=== PATIENT | female | born 1960 | race Caucasian/White ===

== ENCOUNTER 2016-07-13 01:05 | Emergency (ER) | payer MEDICAID ==
[~2016-07-13] VITALS: Ht 144.8 cm; Wt 68.0 kg
[~2016-07-13 01:05] MED LIST: DIPH1POW6 PO; MENT1LOZ4 MM
[2016-07-13 01:33] VITALS: BP 157/93
[2016-07-13] MEDS ORDERED: predniSONE 20 MG TABLET ONE (02:36)
[2016-07-13] MEDS ORDERED: ALBUTEROL FS 2.5 MG/3 ML VIAL.NEB ONE (02:39)
[2016-07-13] MEDS ORDERED: ALBUTEROL FS 2.5 MG/0.5 ML VIAL.NEB ONE (02:49)
[2016-07-13] MEDS ORDERED: ALBUTEROL FS 2.5 MG/3 ML VIAL.NEB NEB ONE (03:00)
[2016-07-13] MEDS ORDERED: ALBUTEROL FS 2.5 MG/0.5 ML VIAL.NEB NEB ONE (03:00)
[2016-07-13] MEDS ORDERED: predniSONE 20 MG TABLET PO ONE (03:00)
== END 2016-07-13 03:50 | disposition home or self-care (01) ==
LOC: ER 01:06
DX: J20.9 Acute bronchitis, unspecified (principal)
CPT/HCPCS: 71010-TC; A4606; Z7610

== ENCOUNTER 2023-07-19 18:06 | Emergency (ER) | payer MEDICAID, OTHER ==
[~2023-07-19] VITALS: Ht 154.9 cm; Wt 68.0 kg
[2023-07-19] MEDS ORDERED: AZIT250T PO (20:46)
[2023-07-19] MEDS ORDERED: ALBU6.7H9 INH (20:46)
[2023-07-19] MEDS ORDERED: BENZ-13 PO (20:46)
[2023-07-19 20:53] LABS: BASOPHILS % (AUTO) 0.4 % (0.0-2.0); EOSINOPHILS # (AUTO) 0.3 K/uL (0.0-0.7); EOSINOPHILS % (AUTO) 3.8 % (0.0-6.0); HEMATOCRIT 39 % (33-45); LYMPHOCYTES % (AUTO) 48.3 % (20.0-44.0); MEAN CORPUSCULAR HEMOGLOBIN 30 PG (26.0-33.0); MEAN CORPUSCULAR HGB CONC 33 g/dl (31.0-36.0); MEAN CORPUSCULAR VOLUME 90 fL (82-100); MONOCYTES # (AUTO) 0.6 K/uL (0.1-1.30); MONOCYTES % (AUTO) 6.9 % (2.0-12.0); NEUTROPHILS # (AUTO) 3.3 K/uL (1.8-8.9); NEUTROPHILS % (AUTO) 40.6 % (43.0-81.0); PLATELET COUNT (AUTO) 371 K/uL (150-450); RED BLOOD CELL COUNT(AUTO) 4.34 MIL/uL (4.0-5.2); RED CELL DISTRIBUTION WIDTH 13.4 % (11.5-15.0); WHITE BLOOD COUNT (AUTO) 8.2 K/uL (4.3-11.0)
[2023-07-19 21:41] LABS: ALBUMIN 3.6 g/dL (3.4-5.0); BILIRUBIN,TOTAL 0.2 mg/dL (0.2-1.0); CALCIUM, SERUM 9.2 mg/dL (8.5-10.1); CREATININE 0.7 mg/dL (0.6-1.3); POTASSIUM 3.7 mmol/L (3.5-5.1); TOTAL PROTEIN, SERUM 7.6 g/dL (6.4-8.2)
[2023-07-20 06:56] VITALS: BP 137/78; TEMP 97.9; O2SAT 98
== END 2023-07-20 06:56 | disposition home or self-care (01) ==
LOC: ER 18:06
DX: J20.9 Acute bronchitis, unspecified (principal); R94.31 Abnormal electrocardiogram [ECG] [EKG]; E11.9 Type 2 diabetes mellitus without complications; Z20.822 Contact with and (suspected) exposure to COVID-19
CPT/HCPCS: 36415; 71045-TC; 80053-TC; 83880; 84484-TC; 85025-TC